=== PATIENT | female | born 1990 | race African-American/Black ===

== ENCOUNTER 2016-08-15 14:45 | Emergency (ER) | payer SELFPAY ==
--- NOTE | 2016-08-15 15:30 | ER Document Report ---
ED Medical Screen (RME) - General Stated Complaint: TOOTH ACHE Notes: Patient states her upper tooth broke about a week and a half ago, but has been painful for the last week. Patient has had no dental follow-up. No fever noted. I have greeted and performed a rapid initial assessment of this patient. A comprehensive ED assessment and evaluation of the patient, analysis of test results and completion of the medical decision making process will be conducted by additional ED providers. Physical Exam - Vital signs Vitals: Temp Pulse Resp BP Pulse Ox 98.3 F 65 18 148/85 H 98 08/15/16 14:49 08/15/16 14:49 08/15/16 14:49 08/15/16 14:49 08/15/16 14:49 - HEENT Teeth diagram: 1 - broken tooth, mild gum swelling Notes: slight edema noted to right cheek Course - Vital Signs Vital signs: Temp Pulse Resp BP Pulse Ox 98.3 F 65 18 148/85 H 98 08/15/16 14:49 08/15/16 14:49 08/15/16 14:49 08/15/16 14:49 08/15/16 14:49
--- NOTE | 2016-08-15 19:39 | ER Document Report ---
ED Oral Problem - General Chief Complaint: Toothache Stated Complaint: TOOTH ACHE Time seen by provider: 19:33 Mode of Arrival: Ambulatory Information source: Patient Notes: 26-year-old female presents to the emergency room with right upper tooth pain. She did have damaged tooth approximately a week ago. She denies any fever. She 's been taking ibuprofen for the pain. TRAVEL OUTSIDE OF THE [place] IN LAST 30 DAYS: No - HPI Patient complains to provider of: Toothache Onset: Just prior to arrival Onset: Gradual Quality of pain: Dull Severity: Moderate Pain Level: 3 Context: Fractured tooth Associated symptoms: Toothache. denies: Drooling, Fever Worsened by: Cold Relieved by: Nothing Similar symptoms previously: Yes Recently seen / treated by doctor/dentist: Yes - Related Data Allergies/Adverse Reactions: No Known Allergies Allergy (Unverified 08/15/16 15:29) Past Medical History - General Information source: Patient - Social History Smoking Status: Never Smoker Cigarette use (# per day): No Chew tobacco use (# tins/day): No Frequency of alcohol use: None Drug Abuse: None Lives with: Family Family History: Reviewed & Not Pertinent Patient has suicidal ideation: No Patient has homicidal ideation: No - Medical History Medical History: Negative Renal/ Medical History: Denies: Hx Peritoneal Dialysis Surgical Hx: Negative Review of Systems - Review of Systems Constitutional: denies: Chills, Fever EENT: See HPI Cardiovascular: No symptoms reported Respiratory: No symptoms reported Gastrointestinal: No symptoms reported Genitourinary: No symptoms reported Female Genitourinary: No symptoms reported Musculoskeletal: No symptoms reported Skin: No symptoms reported Hematologic/Lymphatic: No symptoms reported Neurological/Psychological: No symptoms reported Physical Exam - Vital signs Vitals: Temp Pulse Resp BP Pulse Ox 98.3 F 65 18 148/85 H 98 08/15/16 14:49 08/15/16 14:49 08/15/16 14:49 08/15/16 14:49 08/15/16 14:49 Notes: Physical exam: GENERAL: 86-year-old female, alert and oriented 3, no acute distress HEAD: Atraumatic, normocephalic. EYES: Pupils equal round and reactive to light, extraocular movements intact, sclera anicteric, conjunctiva are normal. ENT: Oropharynx shows right upper premolar which is fractured and tender to palpation. Is no obvious abscess to the soft tissues. There is no facial swelling. Moist mucous membranes. No trismus. NECK: Normal range of motion, supple without lymphadenopathy, no swelling to the submandibular and submental spaces. Course - Vital Signs Vital signs: Temp Pulse Resp BP Pulse Ox 98.3 F 65 18 148/85 H 98 08/15/16 14:49 08/15/16 14:49 08/15/16 14:49 08/15/16 14:49 08/15/16 14:49 Discharge - Discharge Clinical Impression: dental caries Condition: Stable Disposition: HOME, SELF-CARE Instructions: Oral Narcotic Medication ([facility]), Penicillin V K ([facility]), Toothache ( [facility]) Additional Instructions: Recommendations: Follow-up with the dentist as planned on Thursday. Return to the emergency room for worsening pain or concerns he getting worse. Take the pain medicine and antibiotics as prescribed. Start the antibiotics are morning (you were given tonight's dose in the ER). The pain medicine you're taking prescribed as a narcotic. There are several important things you should know about this medicine: 1. This medicine contains Tylenol: It is important that you do not take Tylenol (or acetaminophen) while on this medicine. Tylenol is metabolized by the liver and taking too much Tylenol (acetaminophen) can lay to liver damage and even liver failure. 2. Taking narcotics for too long can lead to physical and mental dependence. Take this medicine only if really needed and in the lowest quantity to achieve pain relief. 3. Do not drink alcohol while on this medicine. Alcohol interacts with narcotics and the combination can be dangerous. 4. Do not drive or operate machinery while on this medicine. 5. Narcotics do cause constipation, so drink plenty of fluids and daily stool softeners. Prescriptions: Oxycodone HCl/Acetaminophen [Percocet 5-325 mg Tablet] 1 - 2 tab PO ASDIR PRN # 25 tablet PRN Reason: Penicillin V Potassium [Penicillin Vk 500 mg Tablet] 500 mg PO QID #28 tablet Forms: Return to Work
[2016-08-15] MEDS ORDERED: OXYCODONE-ACETAMINOPHEN 5-325 MG TABLET PO ONE (19:40)
[2016-08-15] MEDS ORDERED: PENICILLIN V POTASSIUM 500 MG TABLET PO ONE (19:40)
[2016-08-15 19:54] VITALS: BP 132/68
== END 2016-08-15 19:49 | disposition home or self-care (01) ==
LOC: ER 14:45
DX: K02.9 Dental caries, unspecified (principal); K08.89 Other specified disorders of teeth and supporting structures
CPT/HCPCS: 99282

== ENCOUNTER 2017-06-03 19:04 | Emergency (ER) | payer SELFPAY ==
[2017-06-03] MEDS ORDERED: HYDROCODONE/ACETAMINOPHEN 5-325 MG (6 TAB/ER DISP) PO PRN (20:58)
[2017-06-03] MEDS ORDERED: PENICILLIN V POTASSIUM 500 MG TABLET PO ONE (20:58)
--- NOTE | 2017-06-03 21:04 | ER Document Report ---
HPI - HPI Patient complains to provider of: Dental pain Onset: Other - 2 days Onset/Duration: Persistent Quality of pain: Achy Pain Level: 5 Context: Patient presents complaining of dental pain after breaking her tooth while eating a pretzel 2 days ago. Patient denies any fever or facial swelling. Patient does not currently have a dentist to follow-up with. Associated Symptoms: Other - dental pain. denies: Fever Exacerbated by: Denies Relieved by: Denies Similar symptoms previously: No Recently seen / treated by doctor: No - ROS ROS below otherwise negative: Yes Systems Reviewed and Negative: Yes All other systems reviewed and negative - CONSTITUTIONAL Constitutional: DENIES: Fever - EENT Notes: dental pain - GASTROINTESTINAL Gastrointestinal: DENIES: Nausea, Patient vomiting - MUSCULOSKELETAL Musculoskeletal: DENIES: Back Pain, Neck Pain - DERM Skin Color: Normal Skin Problems: None Past Medical History - General Information source: Patient - Social History Smoking Status: Never Smoker Frequency of alcohol use: None Drug Abuse: None Occupation: none Lives with: Family Family History: Reviewed & Not Pertinent - Medical History Medical History: Negative Renal/ Medical History: Denies: Hx Peritoneal Dialysis Past Surgical History: Reports: Hx Section Vertical Provider Document - CONSTITUTIONAL Agree With Documented VS: Yes Exam Limitations: No Limitations General Appearance: WD/WN, No Apparent Distress - INFECTION CONTROL TRAVEL OUTSIDE OF THE [place] IN LAST 30 DAYS: No - HEENT HEENT: Atraumatic, Normocephalic Mouth Diagram: 1 - dental fracture with tenderness, no abscess, no trismus - NECK Neck: Normal Inspection, Supple. negative: Lymphadenopathy-Left, Lymphadenopathy-Right - RESPIRATORY Respiratory: Breath Sounds Normal, No Respiratory Distress O2 Sat by Pulse Oximetry: 99 - CARDIOVASCULAR Cardiovascular: Regular Rate, Regular Rhythm, No Murmur - BACK Back: Normal Inspection - MUSCULOSKELETAL/EXTREMETIES Musculoskeletal/Extremeties: MAEW - NEURO Level of Consciousness: Awake, Alert, Appropriate Motor/Sensory: No Motor Deficit - DERM Integumentary: Warm, Dry, No Rash Course - Re-evaluation Re-evalutation: 06/03/17 21:02 The patient has been informed that they may have pre-hypertension or hypertension based on a blood pressure reading in the emergency department. I recommend that patient call the primary care provider listed on their discharge instructions or a physician of their choice by this week to arrange follow-up for further evaluation of possible pre-hypertension or hypertension. 06/03/17 21:03 Controlled substance database reviewed - Vital Signs Vital signs: Temp Pulse Resp BP Pulse Ox 98.8 F 65 22 H 149/76 H 99 06/03/17 19:52 06/03/17 19:52 06/03/17 19:52 06/03/17 19:52 06/03/17 19:52 Discharge - Discharge Clinical Impression: Elevated blood pressure reading Fracture, tooth Qualifiers: Encounter type: initial encounter Fracture type: closed Qualified Code(s): S02.5XXA - Fracture of tooth (traumatic), initial encounter for closed fracture Condition: Stable Disposition: HOME, SELF-CARE Instructions: Penicillin V K ([facility]), Toothache ([facility]) Additional Instructions: Return immediately for any new or worsening symptoms Followup with your primary care provider, call tomorrow to make a followup appointment Follow-up with a dental care provider Prescriptions: Naproxen [Naprosyn 250 Nmg Tablet] 1 tab PO BID #14 tablet Penicillin V Potassium [Penicillin Vk 500 mg Tablet] 500 mg PO BID #20 tablet Referrals: [facility] [Provider Group] - Follow up tomorrow
[2017-06-03 21:27] VITALS: BP 142/75
== END 2017-06-03 21:25 | disposition home or self-care (01) ==
LOC: ER 19:04
DX: S02.5XXA Fracture of tooth (traumatic), initial encounter for closed fracture (principal); X58.XXXA Exposure to other specified factors, initial encounter; K08.89 Other specified disorders of teeth and supporting structures; R03.0 Elevated blood-pressure reading, without diagnosis of hypertension
CPT/HCPCS: 99282

== ENCOUNTER 2017-10-29 21:57 | Emergency (ER) | payer SELFPAY ==
[2017-10-29 23:17] LABS: ABSOLUTE BASOPHILS # (AUTO) 0.2 10^3/uL (0.0-0.2); ABSOLUTE EOSINOPHILS # (AUTO) 0.3 10^3/uL (0.0-0.6); ABSOLUTE LYMPHOCYTES (AUTO) 3.6 10^3/uL (0.5-4.7); ABSOLUTE MONOCYTES (AUTO) 0.7 10^3/uL (0.1-1.4); ABSOLUTE NEUT (AUTO) 7.6 10^3/uL (1.7-8.2); BASOPHILS % (AUTO) 1.2 % (0-2); EOSINOPHILS % (AUTO) 2.1 % (0-6); HEMATOCRIT 39.9 % (36.0-47.0); LYMPHOCYTES % (AUTO) 29.4 % (13-45); MEAN CORPUSCULAR HEMOGLOBIN 26.9 pg (27.0-33.4); MEAN CORPUSCULAR HGB CONC 32.7 g/dL (32.0-36.0); MEAN CORPUSCULAR VOLUME 82 fl (80-97); MONOCYTES % (AUTO) 5.6 % (3-13); PLATELET COUNT 296 10^3/uL (150-450); RED BLOOD COUNT 4.84 10^6/uL (3.72-5.28); RED CELL DISTRIBUTION WIDTH 13.9 % (11.5-14.0); SEGMENTED NEUTROPHILS % (AUTO) 61.7 % (42-78); TOTAL CELLS COUNTED % (AUTO) 100 %; WHITE BLOOD COUNT 12.4 10^3/uL (4.0-10.5)
[2017-10-29 23:29] LABS: ALANINE AMINOTRANSFERASE 21 U/L (9-52); ALBUMIN 3.8 g/dL (3.5-5.0); ALKALINE PHOSPHATASE 56 U/L (38-126); ANION GAP 10 (5-19); ASPARTATE AMINO TRANSFERASE 14 U/L (14-36); BILIRUBIN,DIRECT 0.2 mg/dL (0.0-0.4); BILIRUBIN,TOTAL 0.7 mg/dL (0.2-1.3); BLOOD UREA NITROGEN 10 mg/dL (7-20); CALCIUM 9.8 mg/dL (8.4-10.2); CARBON DIOXIDE 25 mmol/L (22-30); CHLORIDE 107 mmol/L (98-107); GLUCOSE 114 mg/dL (75-110); LIPASE 71.8 U/L (23-300); SODIUM 142.2 mmol/L (137-145); TOTAL PROTEIN 6.6 g/dL (6.3-8.2)
[2017-10-30 01:20] LABS: APPEARANCE,URINE CLOUDY; BILIRUBIN,URINE NEGATIVE (NEGATIVE); COLOR,URINE AMBER; GLUCOSE, URINE NEGATIVE (NEGATIVE); KETONES,URINE NEGATIVE (NEGATIVE); LEUKOCYTE ESTERASE,URINE NEGATIVE (NEGATIVE); NITRITE,URINE NEGATIVE (NEGATIVE); PROTEIN,URINE 30 mg/dL (NEGATIVE); URINE SPECIFIC GRAVITY 1.031
--- NOTE | 2017-10-30 02:46 | ER Document Report ---
ED General - General Chief Complaint: Abdominal Pain Stated Complaint: ABDOMINAL PAIN Time Seen by Provider: 10/30/17 00:46 Mode of Arrival: Ambulatory Information source: Patient Notes: Patient is a 27-year-old female who presents with complaints of mid to upper abdominal pain that started yesterday. Patient denies any nausea, vomiting, diarrhea, urinary frequency or dysuria. Patient denies any constipation and reports that she has normal bowel movements each day. Patient does however report that she has had a 63 pound weight loss since May and is now down to weighing 375 pounds from 438 in May. Patient reports that she has changed her diet and has started started exercising. Patient states that she has lost most of her inches in her upper abdomen area and now she her lower abdomen is hanging down nearly to the middle of her thighs. Patient states that the pain she is experiencing in her upper abdomen feels like a pulling sensation. Patient denies any other past medical history and does not take any daily medications. TRAVEL OUTSIDE OF THE [place] IN LAST 30 DAYS: No - Related Data Allergies/Adverse Reactions: No Known Allergies Allergy (Verified 06/03/17 19:05) Past Medical History - General Information source: Patient - Social History Smoking Status: Never Smoker Cigarette use (# per day): No Chew tobacco use (# tins/day): No Smoking Education Provided: No Frequency of alcohol use: None Drug Abuse: Marijuana Lives with: Spouse/Significant other Family History: Reviewed & Not Pertinent Patient has suicidal ideation: No Patient has homicidal ideation: No - Medical History Medical History: Negative - Past Medical History Cardiac Medical History: Reports: None Pulmonary Medical History: Reports: None EENT Medical History: Reports: None Neurological Medical History: Reports: None Endocrine Medical History: Reports: None Renal/ Medical History: Denies: Hx Peritoneal Dialysis Malignancy Medical History: Reports: None GI Medical History: Reports: None Musculoskeltal Medical History: Reports None Skin Medical History: Reports None Psychiatric Medical History: Reports: None Traumatic Medical History: Reports: None Infectious Medical History: Reports: None Past Surgical History: Reports: Hx Section Physical Exam - Vital signs Vitals: Temp Pulse BP Pulse Ox 99.3 F 67 146/95 H 99 10/29/17 22:15 10/29/17 22:15 10/29/17 22:15 10/29/17 22:15 - Notes Notes: PHYSICAL EXAMINATION: GENERAL: Well-appearing, well-nourished and in no acute distress. HEAD: Atraumatic, normocephalic. EYES: Pupils equal round and reactive to light, extraocular movements intact, conjunctiva are normal. ENT: Nares patent, oropharynx clear without exudates. Moist mucous membranes. NECK: Normal range of motion, supple without lymphadenopathy LUNGS: Breath sounds clear to auscultation bilaterally and equal. No wheezes rales or rhonchi. HEART: Regular rate and rhythm without murmurs ABDOMEN: Large, Soft, nontender, nondistended abdomen with pendulous pannus. No guarding, no rebound. No masses appreciated. Female : deferred Musculoskeletal: Normal range of motion, no pitting or edema. No cyanosis. NEUROLOGICAL: Cranial nerves grossly intact. Normal speech, normal gait. Normal sensory, motor exams PSYCH: Normal mood, normal affect. SKIN: Warm, Dry, normal turgor, no rashes or lesions noted. Course - Re-evaluation Re-evalutation: 27-year-old morbidly obese female who presents with complaints of mid abdominal pain since her 63 pound weight loss in 6 months. Patient reports that she has no other symptoms other than a "pulling sensation" in her upper abdomen and this pain is relieved by sitting or laying down and worsened by standing. Patient has a very large lower abdomen/pannus that does hang down to just above her mid thigh. Patient's abdominal exam is unremarkable, there is no tenderness with palpation , no rebound, no guarding no peritoneal signs. Patient's workup today is completely normal other than a mildly elevated white blood count with no left shift. Comprehensive metabolic panel and lipase are both unremarkable. Urine is unremarkable with no signs of infection. Patient believes this pulling sensation is from the weight of her abdomen hanging down and I do agree with this. I will provide patient with an abdominal binder to add some additional support to the abdomen. Patient does have an established primary care provider with [facility] who is helping oversee her weight loss program. I do recommend the patient does follow-up with her primary care provider for further direction. Patient given significant encouragement on her recent lifestyle changes and weight loss. Patient is given return precautions to include returning to the emergency department if she develops worsening abdominal pain that is accompanied by fever, nausea/vomiting or diarrhea. - Vital Signs Vital signs: Temp Pulse Resp BP Pulse Ox 98.2 F 64 20 136/94 H 100 10/30/17 02:02 10/30/17 02:02 10/30/17 02:02 10/30/17 02:02 10/30/17 02:02 - Laboratory Result Diagrams: 10/29/17 23:00 10/29/17 23:00 Laboratory results interpreted by me: 10/29/17 10/29/17 10/30/17 23:00 23:00 00:32 WBC 12.4 H MCH 26.9 L Glucose 114 H Urine Protein 30 H Urine Blood SMALL H Urine Urobilinogen 4.0 H Urine Ascorbic Acid 40 H Discharge - Discharge Clinical Impression: Abdominal pannus Abdominal pain Qualifiers: Abdominal location: unspecified location Qualified Code(s): R10.9 - Unspecified abdominal pain Condition: Stable Disposition: HOME, SELF-CARE Additional Instructions: Your blood and urine results were normal. Please use the abdominal binder as needed for support. Please continue to follow up with your primary care provider. Return to the emergency department if you develop worsening symptoms such as continued abdominal pain despite use of the abdominal binder,you start vomiting or you develop a fever.
[2017-10-30 06:24] VITALS: BP 136/94
== END 2017-10-30 02:30 | disposition home or self-care (01) ==
LOC: ER 21:57
DX: E65 Localized adiposity (principal); R10.9 Unspecified abdominal pain; E66.01 Morbid (severe) obesity due to excess calories; D72.829 Elevated white blood cell count, unspecified
CPT/HCPCS: 36415; 80053; 81001; 83690; 85025; 99284

== ENCOUNTER 2018-01-06 18:56 | Emergency (ER) | payer SELFPAY ==
--- NOTE | 2018-01-06 20:07 | ER Document Report ---
ED Medical Screen (RME) - General Chief Complaint: Abdominal Pain Stated Complaint: STOMACH PAIN Time Seen by Provider: 01/06/18 19:58 Notes: Worsening abdominal pain along the left lower quadrant TRAVEL OUTSIDE OF THE [place] IN LAST 30 DAYS: No - HPI Patient complains to provider of: Cramping sharp pain in the left lower quadrant - Related Data Allergies/Adverse Reactions: No Known Allergies Allergy (Verified 06/03/17 19:05) Past Medical History Renal/ Medical History: Denies: Hx Peritoneal Dialysis Past Surgical History: Reports: Hx Section Physical Exam - Vital signs Vitals: Temp Pulse Resp BP Pulse Ox 99.4 F 60 14 145/60 H 100 01/06/18 19:05 01/06/18 19:05 01/06/18 19:05 01/06/18 19:05 01/06/18 19:05 Course - Re-evaluation Re-evalutation: 01/06/18 20:27 This is a morbidly obese 27-year-old female who comes in with a sharp cramping stabbing pain in the left lower quadrant which radiates to the groin. She notes that she does have some episodes which make her feel like she wants to vomit as well. She has had substantial weight loss recently and has an irregular menses. Have a concern that this may represent a torsion in this patient, will obtain hCG, blood count, urinalysis as well as a ultrasound to evaluate for flow. Patient will require further evaluation to the emergency department - Vital Signs Vital signs: Temp Pulse Resp BP Pulse Ox 99.4 F 60 14 145/60 H 100 01/06/18 19:05 01/06/18 19:05 01/06/18 19:05 01/06/18 19:05 01/06/18 19:05
[2018-01-06 21:55] LABS: APPEARANCE,URINE SLIGHTLY-CLOUDY; BILIRUBIN,URINE NEGATIVE (NEGATIVE); COLOR,URINE YELLOW; GLUCOSE, URINE NEGATIVE (NEGATIVE); KETONES,URINE NEGATIVE (NEGATIVE); LEUKOCYTE ESTERASE,URINE NEGATIVE (NEGATIVE); NITRITE,URINE NEGATIVE (NEGATIVE); PROTEIN,URINE NEGATIVE (NEGATIVE)
--- NOTE | 2018-01-06 22:09 | RADIOLOGY REPORT (SQ) ---
EXAM DESCRIPTION: U/S NON OB PEL TV W/DOPPLER COMPLETED DATE/TIME: 01/06/2018 9:02 pm REASON FOR STUDY: rule out torsion LMP 11/20/2017 COMPARISON: None. TECHNIQUE: Dynamic and static grayscale images acquired of the pelvis via transvaginal approach and recorded on PACS. Additional selected color Doppler and spectral images recorded. LIMITATIONS: None. FINDINGS: UTERUS: Contour normal. No mass. ENDOMETRIAL STRIPE: No focal or generalized thickening. No masses. An IUD is present. CERVIX: 3.1 cm. No nabothian cysts. RIGHT OVARY AND DOPPLER: Normal size. No worrisome masses. Normal arterial vascular flow without evid ence for torsion. LEFT OVARY AND DOPPLER: Normal size. No worrisome masses. Normal arterial vascular flow without evide nce for torsion. FREE FLUID: There is a small amount of free fluid in the posterior cul-de-sac. OTHER: No other significant finding. MEASUREMENTS: UTERUS: 9.9 x 5 x 6 cm. ENDOMETRIAL STRIPE: 4 mm. RIGHT OVARY: 3 x 2.5 x 3.1 cm. LEFT OVARY: 2.3 x 1.7 x 2.1 cm. IMPRESSION: NORMAL TRANSVAGINAL PELVIC ULTRASOUND. AN IUD IS PRESENT. TECHNICAL DOCUMENTATION: JOB ID: [id number] [employer]- All Rights Reserved Rev-10/23 Reading location - IP/workstation name: [email or web address]
--- NOTE | 2018-01-06 22:50 | ER Document Report ---
ED GI/ - General Chief Complaint: Abdominal Pain Stated Complaint: STOMACH PAIN Time Seen by Provider: 01/06/18 19:58 Notes: 27-year-old female patient emergency department chief complaint of left lower quadrant abdominal pain. Patient states that she has had diarrhea on and off for the last 6 2 weeks. Occasional blood. Pain is crampy in the left lower quadrant. No vomiting. No significant vaginal bleeding or vaginal discharge. TRAVEL OUTSIDE OF THE [place] IN LAST 30 DAYS: No - HPI Patient complains to provider of: Abdominal pain, Diarrhea. No: Vaginal discharge, Vaginal pain, Vomiting Onset: Yesterday Timing/Duration: Gradual, Constant Quality of pain: Cramping Severity at maximum: Moderate Severity in ED: Moderate Pain Level: 3 - Related Data Allergies/Adverse Reactions: No Known Allergies Allergy (Verified 06/03/17 19:05) Past Medical History - General Information source: Patient - Social History Smoking Status: Never Smoker Cigarette use (# per day): No Frequency of alcohol use: None Drug Abuse: None Lives with: Spouse/Significant other Family History: Reviewed & Not Pertinent Patient has suicidal ideation: No Patient has homicidal ideation: No - Medical History Medical History: Negative Renal/ Medical History: Denies: Hx Peritoneal Dialysis Past Surgical History: Reports: Hx Section Review of Systems - Review of Systems Notes: Constitutional: denies: Chills, Diaphoresis, Fever, Malaise, Weakness EENT: denies: Eye discharge, Blurred vision, Tearing, Double vision, Nose congestion, Nose discharge, Throat swelling, Mouth pain Cardiovascular: denies: Palpitations, Heart racing, Orthopnea, Dyspnea. denies : Chest pain Respiratory: denies: Cough, Hurts to breathe, Wheezing, Shortness of breath Gastrointestinal: Consistent with left lower quadrant abdominal pain and diarrhea. Occasional blood in the stool. No nausea or vomiting. No black stools. Genitourinary: denies: Burning, Dysuria, Discharge, Frequency, Flank pain, Hematuria Musculoskeletal: denies: Joint pain, Joint swelling, Muscle pain, Muscle stiffness, back pain Hematologic/Lymphatic: denies: Anemia, Easy bleeding, Easy bruising, Blood clots Neurological/Psychological: denies: Confusion, Dementia, Depression, Loss of consciousness Skin: Denies any rash, lesions, breakdown Physical Exam - Vital signs Vitals: Temp Pulse Resp BP Pulse Ox 99.4 F 60 14 145/60 H 100 01/06/18 19:05 01/06/18 19:05 01/06/18 19:05 01/06/18 19:05 01/06/18 19:05 Interpretation: Normal - General General appearance: Appears well, Alert - HEENT Head: Normocephalic, Atraumatic Eyes: Normal Pupils: PERRL - Respiratory Respiratory status: No respiratory distress Chest status: Nontender Breath sounds: Normal Chest palpation: Normal - Cardiovascular Rhythm: Regular Heart sounds: Normal auscultation Murmur: No - Abdominal Inspection: Normal Distension: No distension Bowel sounds: Normal Tenderness: Tender - Tenderness to palpation left lower quadrant. No guarding or rebound. Organomegaly: No organomegaly - Back Back: Normal, Nontender - Extremities General upper extremity: Normal inspection, Nontender, Normal color, Normal ROM , Normal temperature General lower extremity: Normal inspection, Nontender, Normal color, Normal ROM , Normal temperature, Normal weight bearing. No: Francisco's sign - Neurological Neuro grossly intact: Yes Cognition: Normal Orientation: AAOx4 Beaumont Coma Scale Eye Opening: Spontaneous Bea[place]ont Coma Scale Verbal: Oriented Bea[place]ont Coma Scale Motor: Obeys Commands Beaumont Coma Scale Total: 15 Speech: Normal Motor strength normal: LUE, RUE, LLE, RLE Sensory: Normal - Psychological Associated symptoms: Normal affect, Normal mood - Skin Skin Temperature: Warm Skin Moisture: Dry Skin Color: Normal Course - Re-evaluation Re-evalutation: 01/06/18 22:49 Patient received ultrasound ordered from triage. At this time patient denies any vaginal complaints back from ultrasound. States that she has left lower quadrant abdominal pain. Giving history of diarrhea. Patient's vital signs are stable. Will get some basic labs on her. I have discussed pros and cons of CT scan. At this time she does not want a CT scan. States that she would just like something for the pain and some antibiotics. We will rediscuss the options after ABC is back. 01/06/18 23:41 Patient has a mildly elevated WBC count. Normal vital signs. Afebrile. Tolerating p.o. Discussed pros and cons of CT scan. Patient does not want to stay for CT scan at this time. Patient would like to try symptomatic care. I have given her treatment options and discharge her with antibiotics in the event her symptoms persist she is to begin antibiotics and return - Vital Signs Vital signs: Temp Pulse Resp BP Pulse Ox 99.4 F 60 18 145/60 H 100 01/06/18 19:05 01/06/18 19:05 01/06/18 23:04 01/06/18 19:05 01/06/18 23:04 - Laboratory Result Diagrams: 01/06/18 21:05 01/06/18 21:05 Laboratory results interpreted by me: 01/06/18 01/06/18 01/06/18 21:05 21:05 21:05 WBC 11.4 H RDW 14.2 H AST 12 L Urine Blood SMALL H Urine Urobilinogen 2.0 H Discharge - Discharge Clinical Impression: Colitis Condition: Good Disposition: HOME, SELF-CARE Instructions: Abdominal Pain ([facility]), Colitis, Nonspecific ([facility]) Prescriptions: Ciprofloxacin HCl [Cipro 500 mg Tablet] 500 mg PO BID 7 Days #14 tablet Hydrocodone/Acetaminophen [Grady 5-325 mg Tablet] 1 tab PO TID PRN 4 Days #12 tablet PRN Reason: Abdominal Cramping Metronidazole [Flagyl 500 mg Tablet] 500 mg PO Q6H 7 Days #28 tablet Forms: Return to Work
[2018-01-06 22:56] LABS: ABSOLUTE BASOPHILS # (AUTO) 0.1 10^3/uL (0.0-0.2); ABSOLUTE EOSINOPHILS # (AUTO) 0.3 10^3/uL (0.0-0.6); ABSOLUTE MONOCYTES (AUTO) 0.6 10^3/uL (0.1-1.4); ABSOLUTE NEUT (AUTO) 6.3 10^3/uL (1.7-8.2); BASOPHILS % (AUTO) 0.6 % (0-2); EOSINOPHILS % (AUTO) 2.9 % (0-6); HEMATOCRIT 39.7 % (36.0-47.0); LYMPHOCYTES % (AUTO) 35.4 % (13-45); MEAN CORPUSCULAR HEMOGLOBIN 27.2 pg (27.0-33.4); MEAN CORPUSCULAR HGB CONC 32.7 g/dL (32.0-36.0); MEAN CORPUSCULAR VOLUME 83 fl (80-97); MONOCYTES % (AUTO) 5.5 % (3-13); PLATELET COUNT 307 10^3/uL (150-450); RED BLOOD COUNT 4.77 10^6/uL (3.72-5.28); RED CELL DISTRIBUTION WIDTH 14.2 % (11.5-14.0); SEGMENTED NEUTROPHILS % (AUTO) 55.6 % (42-78); TOTAL CELLS COUNTED % (AUTO) 100 %; WHITE BLOOD COUNT 11.4 10^3/uL (4.0-10.5)
[2018-01-06 23:06] LABS: ALANINE AMINOTRANSFERASE 20 U/L (9-52); ALBUMIN 3.9 g/dL (3.5-5.0); ALKALINE PHOSPHATASE 57 U/L (38-126); ANION GAP 11 (5-19); ASPARTATE AMINO TRANSFERASE 12 U/L (14-36); BILIRUBIN,DIRECT 0.3 mg/dL (0.0-0.4); BILIRUBIN,TOTAL 0.8 mg/dL (0.2-1.3); BLOOD UREA NITROGEN 10 mg/dL (7-20); CALCIUM 9.3 mg/dL (8.4-10.2); CARBON DIOXIDE 27 mmol/L (22-30); CHLORIDE 104 mmol/L (98-107); GLUCOSE 80 mg/dL (75-110); POTASSIUM 4.3 mmol/L (3.6-5.0); TOTAL PROTEIN 6.8 g/dL (6.3-8.2)
[2018-01-07 00:12] VITALS: BP 136/91
== END 2018-01-07 00:08 | disposition home or self-care (01) ==
LOC: ER 18:56
DX: K52.9 Noninfective gastroenteritis and colitis, unspecified (principal); R10.32 Left lower quadrant pain; K92.1 Melena
CPT/HCPCS: 36415; 76830; 80053; 81001; 81025; 85025; 93976; 99284

== ENCOUNTER 2018-03-26 18:47 | Emergency (ER) | payer SELFPAY ==
[2018-03-26 19:01] VITALS: BP 150/94
[2018-03-26] MEDS ORDERED: KETOROLAC TROMETHAMINE 60 MG/2 ML SDV IM ONE (19:06)
[2018-03-26] MEDS ORDERED: BACLOFEN 20 MG TABLET PO ONE (19:06)
--- NOTE | 2018-03-26 19:12 | ER Document Report ---
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 Each time she bends down or stretch her back or move her right arm the pain is increased in intensity. Not associated with any nausea vomiting hypertension or diaphoresis. Denies any difficulty in breathing. Denies any calf pain or swelling. Symptoms began:[ today] Onset: [gradual] Timing: [constant, now gone] Quality: ["pain"] Intensity: [moderate] Location: [As described above] Radiation: [none] Migration: [none] Aggravating factors: [none] Relieving factors: [none] Major PE risk factors: [none] Major aortic dissection risk factors: [none] Review of Systems: All other systems negative as reviewed. CONSTITUTIONAL No fever, No chills, No sweats. EYES No eye pain. ENT No URI symptoms, No sore throat, No ear pain. CARDIOVASCULAR + chest pain, No palpitations, No edema. RESPIRATORY No Cough, No SOB, No wheezing. GASTROINTESTINAL No abdominal pain, No nausea, No diarrhea, No vomiting, No GI Bleeding. GENITOURINARY No UTI symptoms. MUSCULOSKELETAL No back pain, No calf swelling, No calf pain. SKIN No Rash. NEUROLOGIC No Headache Physical Exam CONSTITUTIONAL Vital signs reviewed, Patient appears comfortable, Alert and oriented X 3, Normal stature. HEAD Atraumatic, Normocephalic. EYES Eyes are normal to inspection, No discharge from eyes, Extraocular muscles intact, Sclera are normal, Conjunctiva are normal. ENT Ears normal to inspection, Nose examination normal, Posterior pharynx normal, Mouth normal to inspection. NECK Normal ROM, No jugular venous distention, No meningeal signs, no carotid bruit. RESPIRATORY CHEST Sharp tenderness noted over the right trapezius muscle distribution. Chest is sharply tender over the right sternal joint particularly over the upper ribs., Breath sounds normal, No respiratory distress. CARDIOVASCULAR RRR, No murmurs, Normal S1 S2, No rub, No gallop. ABDOMEN Abdomen is nontender, No pulsatile masses, No other masses, Bowel sounds normal , No distension, No peritoneal signs, No hernias. BACK There is no CVA Tenderness, There is no tenderness to palpation, Normal inspection. UPPER EXTREMITY Inspection normal, No cyanosis, No clubbing, No edema, 2+ radial pulses. LOWER EXTREMITY Inspection normal, No cyanosis, No clubbing, No edema, No calf tenderness, 2+ femoral pulses. NEURO No focal motor deficits, No focal sensory deficits, Speech normal. SKIN Skin is warm, Skin is dry, Skin is normal color. LYMPHATIC No adenopathy in neck. PSYCHIATRIC Normal affect. TRAVEL OUTSIDE OF THE [place] IN LAST 30 DAYS: No - HPI Notes: Dictated - Related Data Allergies/Adverse Reactions: No Known Allergies Allergy (Verified 06/03/17 19:05) Past Medical History - Social History Smoking Status: Never Smoker Frequency of alcohol use: None Drug Abuse: None Lives with: Family Family History: Reviewed & Not Pertinent Patient has suicidal ideation: No Patient has homicidal ideation: No Renal/ Medical History: Denies: Hx Peritoneal Dialysis Past Surgical History: Reports: Hx Section Review of Systems - Review of Systems Notes: Dictated Physical Exam - Vital signs Vitals: Temp Pulse Resp BP Pulse Ox 99.0 F 66 22 H 150/94 H 100 03/26/18 18:58 03/26/18 18:58 03/26/18 18:58 03/26/18 18:58 03/26/18 18:58 - Notes Notes: Dictated Course - Re-evaluation Re-evalutation: 03/26/18 19:10 Patient was explained this is due to costochondritis as well as trapezius side strain given pain medication and muscle relaxers. - Vital Signs Vital signs: Temp Pulse Resp BP Pulse Ox 99.0 F 66 22 H 150/94 H 100 03/26/18 18:58 03/26/18 18:58 03/26/18 18:58 03/26/18 18:58 03/26/18 18:58 - EKG Interpretation by Ia EKG shows normal: QRS Complexes - Sinus rhythm at the rate of 61 bpm normal axis no acute ST elevation ST depression T wave inversion noted. Discharge - Discharge Clinical Impression: Costochondritis, acute Trapezius muscle strain Qualifiers: Encounter type: initial encounter Laterality: right Qualified Code(s): S40.316O - Strain of other muscles, fascia and tendons at shoulder and upper arm level, right arm, initial encounter Condition: Fair Disposition: HOME, SELF-CARE Instructions: Chest Wall Pain ([facility]) Prescriptions: Baclofen [Baclofen 20 Mg Tablet] 20 mg PO TID #30 tablet Naproxen 500 mg PO BID #60 tablet
--- NOTE | 2018-03-26 19:23 | EKG REPORT ---
SEVERITY:- NORMAL ECG - SINUS RHYTHM : Confirmed by: Eduardo Orellana MD 26-Mar-2018 19:23:16
== END 2018-03-26 19:35 | disposition home or self-care (01) ==
LOC: ER 18:47
DX: M94.0 Chondrocostal junction syndrome [Tietze] (principal); S29.012A Strain of muscle and tendon of back wall of thorax, initial encounter; X58.XXXA Exposure to other specified factors, initial encounter
CPT/HCPCS: 93005; 99283; 96372; 93010; J1885; J3490

== ENCOUNTER 2018-08-10 18:46 | Emergency (ER) | payer SELFPAY ==
[2018-08-10 18:58] VITALS: BP 164/109
[2018-08-10] MEDS ORDERED: LIDOCAINE 2% VISCOUS SOLN 20 ML UDCUP PO ONE (18:58)
--- NOTE | 2018-08-10 19:25 | ER Document Report ---
HPI - HPI Time Seen by Provider: 08/10/18 19:13 Pain Level: 5 Notes: Patient is a 28-year-old female with no significant past medical history who presents the emergency department complaining of right upper dental pain to #4 over the last several days, but has been intermittent over the last couple weeks. Patient states that that tooth broke and she has not been in to see a dentist yet. She has not noticed any obvious abscess or purulent discharge. Patient states that she is still able to eat and drink, but does have a decreased p.o. intake due to the pain. She has tried some [id number] meds with minimal relief. No other concerns or complaints. Denies any headache, fever, head injury, neck pain, hoarseness, drooling, URI, sore throat, chest pain, palpitations, syncope, cough, shortness of breath, wheeze, dyspnea, abdominal pain, nausea/vomiting/diarrhea, urinary retention, dysuria, hematuria, or rash. - ROS Systems Reviewed and Negative: Yes All other systems reviewed and negative - CONSTITUTIONAL Constitutional: DENIES: Fever, Chills - REPRODUCTIVE Reproductive: DENIES: : Past Medical History - Social History Smoking Status: Current Every Day Smoker Frequency of alcohol use: None Drug Abuse: None Family History: Reviewed & Not Pertinent Patient has suicidal ideation: No Patient has homicidal ideation: No Renal/ Medical History: Denies: Hx Peritoneal Dialysis Past Surgical History: Reports: Hx Section - x2, Hx Oral Surgery - multiple teeth removal Vertical Provider Document - CONSTITUTIONAL Agree With Documented VS: Yes Notes: PHYSICAL EXAMINATION: GENERAL: Well-appearing, well-nourished and in no acute distress. HEAD: Atraumatic, normocephalic. EYES: Pupils equal round and reactive to light, extraocular movements intact, sclera anicteric, conjunctiva are normal. ENT: EAC clear b/l. TM's intact b/l without erythema, fluid, or perforation. Nares patent and without discharge. oropharynx clear without exudates. No tonsilar hypertrophy or erythema. Moist mucous membranes. No sinus tenderness. Uvula midline. No palatine shift. No tongue protrusion. No respiratory compromise. Mouth: Poor dentition. + mild decay and fracture to #4, old, and mild gingivitis. No obvious abscess or discharge noted. No facial swelling. + tenderness to tooth #4. NECK: Normal range of motion, supple without lymphadenopathy. No rigidity/meningismus. LUNGS: Breath sounds clear to auscultation bilaterally and equal. No wheezes rales or rhonchi. HEART: Regular rate and rhythm without murmurs, rubs, gallops. NEUROLOGICAL: Cranial nerves grossly intact. Normal speech, normal gait. Normal sensory, motor exams PSYCH: Normal mood, normal affect. SKIN: Warm, Dry, normal turgor, no rashes or lesions noted. - INFECTION CONTROL TRAVEL OUTSIDE OF THE [place] IN LAST 30 DAYS: No Course - Re-evaluation Re-evalutation: 08/10/18 19:24 Patient is an afebrile, well-hydrated, 28-year-old female who presents to the ED with dental pain, suspect nerve root etiology versus infection. Vitals are acceptable. PE is otherwise unremarkable. No I&D, labs, or imaging warranted at this time based on H&P. Viscous lidocaine dispensed today. I will send her home with a prescription for penicillin. Low suspicion for any meningitis, sepsis, peritonsillar/pharyngeal abscess, respiratory compromise, Lazaro's, temporal arteritis, or other emergent systemic condition at this time. Patient is aware this condition can change from initial presentation and she needs to monitor symptoms closely. Conservative measures otherwise for symptoms. Call to schedule an appointment with a dentist for further evaluation and management. Recheck with your PCM this week as well. Return to the ED with any worsening/concerning symptoms otherwise as reviewed in discharge. Patient is in agreement. - Vital Signs Vital signs: Temp Pulse Resp BP Pulse Ox 99.4 F 71 20 164/109 H 99 08/10/18 18:54 08/10/18 18:54 08/10/18 18:54 08/10/18 18:54 08/10/18 18:54 Discharge - Discharge Clinical Impression: Pain, dental Condition: Stable Disposition: HOME, SELF-CARE Instructions: Toothache ([facility]), Penicillin V K ([facility]) Additional Instructions: [place] and floss twice daily Maintain fluid intake Take antibiotics as directed Mouthwash, salt water gargles, peroxide rinse as needed Tylenol/ibuprofen as needed Recheck with PCM this week Call today/tomorrow and schedule an appointment with your dentist for further evaluation Return to the ED with any worsening symptoms and/or development of fever, headache, facial swelling, swelling of lips/tongue/throat, trouble swallowing, drooling, hoarseness, neck pain/stiffness, chest pain, palpitations, syncope, shortness of breath, trouble breathing, abdominal pain, n/v/d, numbness/tingling, or other worsening symptoms that are concerning to you. Prescriptions: Penicillin V Potassium [Penicillin Vk 250 mg Tablet] 500 mg PO BID #40 tablet Forms: Elevated Blood Pressure Referrals: [facility] [Provider Group] - Follow up as needed
== END 2018-08-10 19:35 | disposition home or self-care (01) ==
LOC: ER 18:46
DX: K02.9 Dental caries, unspecified (principal); K05.10 Chronic gingivitis, plaque induced; K08.89 Other specified disorders of teeth and supporting structures; F17.200 Nicotine dependence, unspecified, uncomplicated
CPT/HCPCS: 99282; J3490

== ENCOUNTER 2020-01-03 00:31 | Emergency (ER) | payer SELFPAY ==
[2020-01-03 00:39] VITALS: BP 147/76
[2020-01-03 02:11] LABS: APPEARANCE,URINE CLOUDY; BILIRUBIN,URINE NEGATIVE (NEGATIVE); COLOR,URINE YELLOW; GLUCOSE, URINE NEGATIVE (NEGATIVE); KETONES,URINE NEGATIVE (NEGATIVE); LEUKOCYTE ESTERASE,URINE TRACE (NEGATIVE); NITRITE,URINE NEGATIVE (NEGATIVE); PROTEIN,URINE NEGATIVE (NEGATIVE); URINE SPECIFIC GRAVITY 1.015
[2020-01-03 02:33] LABS: ABSOLUTE BASOPHILS # (AUTO) 0.1 10^3/uL (0.0-0.2); ABSOLUTE EOSINOPHILS # (AUTO) 0.4 10^3/uL (0.0-0.6); ABSOLUTE MONOCYTES (AUTO) 0.5 10^3/uL (0.1-1.4); ABSOLUTE NEUT (AUTO) 4.6 10^3/uL (1.7-8.2); HEMATOCRIT 39.7 % (36.0-47.0); HEMOGLOBIN 13.1 g/dL (12.0-15.5); LYMPHOCYTES % (AUTO) 34.7 % (13-45); MEAN CORPUSCULAR HEMOGLOBIN 28.6 pg (27.0-33.4); MEAN CORPUSCULAR HGB CONC 32.9 g/dL (32.0-36.0); MEAN CORPUSCULAR VOLUME 87 fl (80-97); PLATELET COUNT 218 10^3/uL (150-450); RED BLOOD COUNT 4.57 10^6/uL (3.72-5.28); RED CELL DISTRIBUTION WIDTH 13.8 % (11.5-14.0); SEGMENTED NEUTROPHILS % (AUTO) 53.3 % (42-78); TOTAL CELLS COUNTED % (AUTO) 100 %; WHITE BLOOD COUNT 8.7 10^3/uL (4.0-10.5)
[2020-01-03 03:02] LABS: ALBUMIN 3.9 g/dL (3.5-5.0); ALKALINE PHOSPHATASE 53 U/L (38-126); ANION GAP 6 (5-19); ASPARTATE AMINO TRANSFERASE 15 U/L (14-36); BILIRUBIN,TOTAL 0.6 mg/dL (0.2-1.3); BLOOD UREA NITROGEN 12 mg/dL (7-20); CALCIUM 9.3 mg/dL (8.4-10.2); CARBON DIOXIDE 28 mmol/L (22-30); CHLORIDE 106 mmol/L (98-107); GLUCOSE 90 mg/dL (75-110); POTASSIUM 3.9 mmol/L (3.6-5.0); TOTAL PROTEIN 6.6 g/dL (6.3-8.2)
== END 2020-01-03 03:00 | disposition left against medical advice (07) ==
LOC: ER 00:31
DX: Z53.21 Procedure and treatment not carried out due to patient leaving prior to being seen by health care provider (principal); R10.2 Pelvic and perineal pain
CPT/HCPCS: 36415; 80053; 81001; 81025; 83690; 85025